=== PATIENT | female | born 1940 | race Caucasian/White ===

== ENCOUNTER 2017-01-18 08:41 | Emergency (ER) | payer OTHER ==
[~2017-01-18] VITALS: Ht 170.2 cm; Wt 88.7 kg
[~2017-01-18 08:41] MED LIST: ACETAMINOPHEN325 M1 PO; ASPIRIN81 M2 PO; CIPRO250 MG PO; CIPRO500 MG PO; CLONAZEPAM1 MG PO; DICYCLOMINE HCL20 MG PO; DILAUDID2 MG PO; FIORICET,ESG1 TABLET PO; IBUPROFEN200 M1 PO; LEVOTHYROXINE175 MCG PO; MIRALAX255 GM PO; MULTIPLE VITAM1 EAC1 PO; PYRIDIUM100 MG PO; TAMSULOSIN HCL0.4 MG PO; TRAMADOL HCL50 MG PO
[2017-01-18] MEDS ORDERED: DOXYCYCLINE MO100 MG PO (09:49)
[2017-01-18] MEDS ORDERED: TRAMADOL HCL50 MG PO (09:53)
[2017-01-18 10:32] VITALS: BP 158/90
== END 2017-01-18 10:36 | disposition home or self-care (01) ==
LOC: EME 08:41
DX: L08.9 Local infection of the skin and subcutaneous tissue, unspecified (principal); S91.011A Laceration without foreign body, right ankle, initial encounter; W23.0XXA Caught, crushed, jammed, or pinched between moving objects, initial encounter; K21.9 Gastro-esophageal reflux disease without esophagitis; E78.5 Hyperlipidemia, unspecified
CPT/HCPCS: 99281; 99284

== ENCOUNTER 2017-01-20 08:14 | Emergency (ER) | payer OTHER ==
[~2017-01-20] VITALS: Ht 170.2 cm; Wt 89.4 kg
[~2017-01-20 08:14] MED LIST changes: +DOXYCYCLINE MO100 MG PO
[2017-01-20 08:58] LABS: EOSINOPHIL (%) 1.7 % (0-5); EOSINOPHIL COUNT 0.1 K/uL (0-0.3); HEMATOCRIT 43.5 % (36.0-46.0); IMMATURE GRANULOCYTE (%) 0.2 % (0.0-0.7); INSTRUMENT ABS NEUTROPHIL CT 3.3 K/uL; LYMPHOCYTE COUNT 0.9 K/uL (1.0-2.8); MCH 29.2 PG (29.0-34.0); MCHC 32.4 G/DL (30.0-36.0); MCV 90.1 FL (83-99); MEAN PLAT.VOLUME 8.7 uM^3 (9.5-12.4); MONOCYTE (%) 10.4 % (3-12); MONOCYTE COUNT 0.5 K/uL (0-0.8); NEUTROPHIL (%) 68.5 % (45-76); NEUTROPHIL COUNT 3.3 K/uL (1.8-6.4); PLATELET COUNT 209 K/uL (156-360); RBC DIS.WIDTH-CV 13.4 % (11.8-14.6); RED BLOOD COUNT 4.83 M/uL (3.80-5.20); WHITE BLOOD COUNT 4.8 K/uL (4.1-10.2)
[2017-01-20 09:08] LABS: CHLORIDE 105 mEq/L (99-109); POTASSIUM 3.8 mEq/L (3.7-5.4); SODIUM 139 mEq/L (136-147)
[2017-01-20 09:11] LABS: GLUCOSE 135 mg/dL (70-99)
[2017-01-20 09:12] LABS: ANION GAP 11 MEQ/L (2-14)
[2017-01-20 09:13] LABS: TOTAL BILIRUBIN 0.5 mg/dL (0.0-1.0)
[2017-01-20 09:14] LABS: ALKALINE PHOSPHATASE 75 IU/L (3-129); GFR ESTIMATE (CALCULATED) > 59 mL/min/
[2017-01-20 09:15] LABS: UREA NITROGEN (BUN) 16 mg/dL (9-23)
[2017-01-20] MEDS ORDERED: KEFLEX500 MG PO (14:40)
[2017-01-20] MEDS ORDERED: NORCO 5/3251 TABLET PO (14:40)
[2017-01-20] MEDS ORDERED: BACTROBAN OINTM22 GM TP (14:50)
[2017-01-20 15:11] VITALS: BP 155/77
== END 2017-01-20 15:23 | disposition home or self-care (01) ==
LOC: EME 08:14
PROVIDERS: Physician Assistant
DX: S91.011A Laceration without foreign body, right ankle, initial encounter (principal); L03.115 Cellulitis of right lower limb; W22.8XXA Striking against or struck by other objects, initial encounter; Y92.79 Other farm location as the place of occurrence of the external cause; E03.9 Hypothyroidism, unspecified
CPT/HCPCS: 73701; 80053; 83605; 85025; 87040; 87070; 87075; 87077; 87147; 87186; 87205; 99281; 99285; J0696; J3010; J7050; J7120

== ENCOUNTER 2017-01-23 07:08 | Emergency (ER) | payer OTHER ==
[~2017-01-23] VITALS: Ht 170.2 cm; Wt 86.0 kg
[~2017-01-23 07:08] MED LIST changes: +BACTROBAN OINTM22 GM TP; +KEFLEX500 MG PO; +NORCO 5/3251 TABLET PO
[2017-01-23 10:56] VITALS: BP 137/79
== END 2017-01-23 10:58 | disposition home or self-care (01) ==
LOC: EME 07:08
DX: S91.011D Laceration without foreign body, right ankle, subsequent encounter (principal); Z48.817 Encounter for surgical aftercare following surgery on the skin and subcutaneous tissue; W22.8XXD Striking against or struck by other objects, subsequent encounter; I10 Essential (primary) hypertension; Z85.828 Personal history of other malignant neoplasm of skin
CPT/HCPCS: 99281; 99284